=== PATIENT | female | born 1970 | race Caucasian/White ===

== ENCOUNTER 2017-08-11 17:33 | Emergency (ER) | payer OTHER ==
[~2017-08-11] VITALS: Ht 165.1 cm; Wt 90.7 kg
--- NOTE | 2017-08-11 19:48 | ED HEADACHE COMPLAINT ---
History of Present Illness General Chief Complaint: Headache Stated Complaint: SHOOTING PAINS IN BACK OF HEAD FOR MULTIPLE DAYS Source: patient Exam Limitations: no limitations Vital Signs & Intake/Output Vital Signs & Intake/Output Vital Signs Date Time Temp Pulse Resp B/P B/P Pulse O2 O2 Flow FiO2 Mean Ox Delivery Rate 08/11 1747 98.1 85 15 135/87 95 Room Air Room Air Allergies Coded Allergies: No Known Allergies (08/11/17) Reconcile Medications Ibuprofen 800 MG TABLET 1 TAB PO TID PRN PAIN Metoclopramide HCl (Reglan) 10 MG TABLET 1 TAB PO 4 TIMES/DAY PRN HEADACHE 30 minutes before meals and bedtime Triage Note: PT TO ED FOR C/C OF SHOOTING PAIN TO BASE OF RIGHT HEAD. CONSTANT SINCE SUNDAY. R EYE PAIN WELL, BUT NO CHANGE IN VISION OR NAUSEA. +LIGHTHEADEDNESS. Triage Nurses Notes Reviewed? yes Onset: Abrupt Duration: day(s): (2), constant, continues in ED Timing: single episode today Quality/Severity: moderate, sharp Severity Numbers: 7 Head Injury Location: frontal, occipital No Modifying Factors: none Associated Symptoms: nausea/vomiting LMP (ages 10-50): unknown : No Patient currently breastfeeds: No HPI: She'll female past medical history of hypertension presents for evaluation of headache. Patient states the pain started about 2 days ago and has been persistent. The pain is located on the right side of her occipital and right frontal parts of her head. She also believes behind her right eye. She describes the pain as pressure that is intermittently sharp. She states that most of the time the pain as mild 4 out of 10 but intermittently will become sharp and gets worse to an 8 out of 10. There was no trauma or known triggering event. No thunderclap this is not the worse headache of her life. She denies any history of similar headaches. She reports photophobia and phonophobia. No fever no neck pain no rashes. No chest pain or shortness of breath she does report some nausea without vomiting. She's been taking Advil intermittently with only mild improvement. (Roberto Bertrand) Past History Travel History Traveled to [place] past 21 day No Medical History Any Pertinent Medical History? see below for history Cardiovascular: hypertension Surgical History Surgical History: non-contributory Psychosocial History What is your primary language Portuguese Tobacco Use: Current Daily Use Daily Tobacco Use Amount/Type: => 5 Cigarettes daily ETOH Use: denies use Illicit Drug Use: denies illicit drug use Family History Hx Contributory? No (Roberto Bertrand) Review of Systems Review of Systems Constitutional: Reports: no symptoms. Eyes: Reports: no symptoms. Ears, Nose, Throat, Mouth: Reports: no symptoms. Respiratory: Reports: no symptoms. Cardiovascular: Reports: no symptoms. Gastrointestinal/Abdominal: Reports: see HPI, nausea. Genitourinary: Reports: no symptoms. Musculoskeletal: Reports: no symptoms. Skin: Reports: no symptoms. Neurological/Psychological: Reports: headache. Hematologic/Endocrine: Reports: no symptoms. Endocrine: Reports: no symptoms. Immunologic/Allergic: Reports: no symptoms. All Other Systems: Reviewed and Negative (Roberto Bertrand) Physical Exam Physical Exam General Appearance: well developed/nourished, no apparent distress, alert, awake Head: atraumatic, normal appearance Eyes: Bilateral: normal appearance, PERRL, EOMI. Ears, Nose, Throat: normal pharynx, normal ENT inspection, hearing grossly normal Neck: normal inspection, supple, full range of motion Respiratory: normal breath sounds, chest non-tender, no respiratory distress, lungs clear Cardiovascular: regular rate/rhythm, normal peripheral pulses Gastrointestinal: soft, non-tender Back: normal inspection, normal range of motion, no vertebral tenderness Extremities: normal inspection, normal range of motion, no edema Psychiatric: awake, alert, oriented x 3 Cranial Nerves: normal hearing, normal speech, PERRL Coordination/Gait: normal finger to nose, normal gait, negative Romberg Motor/Sensory: no motor/sensory deficits Skin: intact, normal color, warm/dry Lymphatic: no anterior cervical juan luis Core Measures Sepsis Present: No Sepsis Focused Exam Completed? No (Roberto Bertrand) Progress Differential Diagnosis: cluster ANGLIN, IC mass/tumor, intracranial Hem., migraine ANGLIN, musculoskeletal pain, subarach. Hem., tension ANGLIN Plan of Care: Orders Procedure Date/time Status URINE 08/11 1946 Complete Laboratory Tests 08/11/171956: Urine Test NEGATIVE She seen and evaluated. Standing headache in the past 2 days. It is unilateral behind the right eye associated with some nausea and photophobia and phonophobia. Patient was medicated with Toradol and Reglan. A CT scan of the brain was obtained and is within normal limits other than a partially empty sella. She reports improvement in her pain after medications. She is neurologically intact. She will be given a prescription for Reglan and an ibuprofen. Advised rest and plenty of fluids follow up with primary care doctor. If headache persists may need an MRI/neurology. Discussed return precautions patient appears well she agrees the plan. Diagnostic Imaging: Viewed by Me: CT Scan. Discussed w/RAD: CT Scan. Radiology Impression: PATIENT: NICOLE LIM PRESENT AGE: 46 PATIENT ACCOUNT NO: [id number] : 70 LOCATION: [facility] ORDERING PHYSICIAN: Roberto NUÑEZ SERVICE DATE: 08/11/17 EXAM TYPE: CAT - CT HEAD WO IV CONTRAST EXAMINATION: CT HEAD WITHOUT CONTRAST CLINICAL INFORMATION: Headache COMPARISON: None TECHNIQUE: Contiguous axial imaging was performed from the skull base to vertex without intravenous administration of contrast. DLP: 613.14 mGy-cm FINDINGS: There is no evidence of acute intracranial hemorrhage or territorial infarction. No abnormal mass effect or midline shift is seen. Santizo to white matter differentiation is well preserved. No extra-axial fluid collections are identified. The ventricles are normal in size. There is CSF density within the sella, representing partial empty sella. The osseous structures and soft tissues are normal. The mastoid air cells and visualized portions of the paranasal sinuses are well aerated. IMPRESSION: No acute intracranial pathology. Partial empty sella. DICTATED BY: Martha Restrepo MD DATE/TIME DICTATED:08/11/172050 MATERIAL CHASER:CLAUDIA DATE/TIME TRANSCRIBED:08/11/172050 CONFIDENTIAL, DO NOT COPY WITHOUT APPROPRIATE AUTHORIZATION. (Quentin NUÑEZ,Roberto) Departure Departure Disposition: HOME OR SELF CARE Condition: Stable Clinical Impression Primary Impression: Headache Qualifiers: Headache type: unspecified Headache chronicity pattern: acute headache Intractability: not intractable Qualified Code: R51 - Headache Referrals: Vivian Benitez MD (PCP/Family) Additional Instructions: REST AND DRINK plenty of fluids. Ibuprofen 800 mg every 8 hours as needed for pain. REGLAN CAN also BE useD as needed. Monitor symptoms return in any concerns. Make a follow-up with YOUR primary care doctor to review results of this visit. Departure Forms: Customer Survey General Discharge Information Prescriptions: Current Visit Scripts Ibuprofen 1 TAB PO TID PRN PAIN #30 TAB Metoclopramide HCl (Reglan) 1 TAB PO 4 TIMES/DAY PRN HEADACHE #30 TAB 30 minutes before meals and bedtime (Roberto Bertrand) PA/PRINT PRODUCTION ASSOCIATE Co-Sign Statement Statement: ED Attending supervision documentation- [] I saw and evaluated the patient. I have also reviewed all the pertinent lab results and diagnostic results. I agree with the findings and the plan of care as documented in the PA's/PRINT PRODUCTION ASSOCIATE's documentation. [X] I have reviewed the ED Record and agree with the PA's/PRINT PRODUCTION ASSOCIATE's documentation. [] Additions or exceptions (if any) to the PAs/PRINT PRODUCTION ASSOCIATE's note and plan are summarized below: [] (Wilmer LAINEZ,Cyrus Ruiz)
[2017-08-11 20:00] VITALS: BP 128/78
--- NOTE | 2017-08-11 20:58 | CT SCAN REPORT ---
EXAMINATION: CT HEAD WITHOUT CONTRAST CLINICAL INFORMATION: Headache COMPARISON: None TECHNIQUE: Contiguous axial imaging was performed from the skull base to vertex without intravenous administration of contrast. DLP: 613.14 mGy-cm FINDINGS: There is no evidence of acute intracranial hemorrhage or territorial infarction. No abnormal mass effect or midline shift is seen. Santizo to white matter differentiation is well preserved. No extra-axial fluid collections are identified. The ventricles are normal in size. There is CSF density within the sella, representing partial empty sella. The osseous structures and soft tissues are normal. The mastoid air cells and visualized portions of the paranasal sinuses are well aerated. IMPRESSION: No acute intracranial pathology. Partial empty sella.
[2017-08-11] MEDS ORDERED: REGLAN10 M1 PO (21:15)
[2017-08-11] MEDS ORDERED: IBUPROFEN800 M1 PO (21:15)
== END 2017-08-11 21:25 ==
LOC: ERH 17:33
DX: R51 Headache (principal)
CPT/HCPCS: 81025; 96372; J1885